=== PATIENT | female | born 1995 ===

== ENCOUNTER 2019-04-24 18:50 | Emergency (ER) | payer MEDICAID ==
[2019-04-24 19:16] VITALS: BP 146/86
--- NOTE | 2019-04-24 19:17 | Event Note ---
ED Screening Note Date of service: 04/24/19 Time: 19:14 ED Screening Note: 23 y/o female comes in for headache and vaginal bleeding times 2 weeks. No PMH. LMP 04/10/19. sexually active. This initial assessment/diagnostic orders/clinical plan/treatment(s) is/are subject to change based on patients health status, clinical progression and re- assessment by fellow clinical providers in the ED. Further treatment and workup at subsequent clinical providers discretion. Patient/guardian urged not to elope from the ED as their condition may be serious if not clinically assessed and managed. Initial orders include:
[2019-04-24 20:11] LABS: Basophils % (Auto) 0.3 % (0.0-1.8); Eosinophils % (Auto) 0.1 % (0.0-4.3); Hematocrit 36.3 % (30.3-42.9); Hemoglobin 11.8 gm/dl (10.1-14.3); Lymphocytes # (Auto) 1.2 K/mm3 (1.2-5.4); Lymphocytes % (Auto) 19.6 % (13.4-35.0); Mean Corpuscular HGB Conc 33 % (30-34); Mean Corpuscular Volume 76 fl (79-97); Monocytes # (Auto) 0.4 K/mm3 (0.0-0.8); Monocytes % (Auto) 6.8 % (0.0-7.3); Platelet Count 221 K/mm3 (140-440); Red Blood Count 4.75 M/mm3 (3.65-5.03); Red Cell Distribution Width 17.3 % (13.2-15.2)
[2019-04-24 20:31] LABS: Alanine Aminotransferase 16 units/L (7-56); Albumin 3.7 g/dL (3.9-5); BUN/Creatinine Ratio 12; Blood Urea Nitrogen 6 mg/dL (7-17); Hemolysis Index 10
[2019-04-24] MEDS ORDERED: BENADRYL IV ONE (20:48)
[2019-04-24] MEDS ORDERED: ZOFRAN IV ONE (20:48)
[2019-04-24] MEDS ORDERED: TORADOL IV ONE (20:48)
[2019-04-24] MEDS ORDERED: NACL 0.9% 1000 ML 1,000 ML IV ONE (20:49)
[2019-04-25 01:00] LABS: Color,Urine Yellow (Yellow)
[2019-04-25 01:01] LABS: Bilirubin,Urine Negative (Negative); Blood,Urine Moderate (Negative)
[2019-04-25 01:02] LABS: RBC,Urine > 182.0 /HPF (0.0-6.0)
[2019-04-25] MEDS ORDERED: TORADOL IV ONE (01:10)
[2019-04-25] MEDS ORDERED: ZOFRAN IV ONE (01:11)
[2019-04-25] MEDS ORDERED: FIORICET PO ONE (01:11)
--- NOTE | 2019-04-25 01:17 | Emergency Department Report ---
ED General Adult HPI - General Chief complaint: Vaginal Bleeding Stated complaint: HEADACHE Time Seen by Provider: 04/24/19 19:14 Source: patient Mode of arrival: Ambulatory Limitations: No Limitations - History of Present Illness Initial comments: Patient is a A0 23 yo AA female with a h/o chronic migraine headache who presents to the ED with c/o acute onset persistent frontal headache with nausea for the last 1 week. Patient also states that she has been having persistent heavy vaginal bleeding for the last 2 weeks after having her menstrual cycle. Patient states that she does not take any control tablets and not using any other contraceptives. Patient denies dizziness, chest pain, vision changes, abdominal pain, vomiting, syncope, fever and chills, dyspnea or cough and neck pain or palpitations, dysuria, urinary urgency and frequency or vaginal discharge. MD Complaint: headache, heavy vaginal bleeding -: Sudden, week(s) (2) Location: head, genitals Radiation: non-radiation Severity scale (0 -10): 7 Quality: aching, sharp, constant Consistency: intermittent Improves with: none Worsens with: none Associated Symptoms: denies other symptoms, headaches, other (vaginal bleeding). denies: confusion, chest pain, cough, diaphoresis, fever/chills, loss of appetite, malaise, nausea/vomiting, rash, seizure, shortness of breath, syncope, weakness Treatments Prior to Arrival: none - Related Data Previous Rx's Medication Instructions Recorded Last Taken Type Butalb/Acetamin/Caff 50-325-40 1 - 2 tab PO Q6HR PRN #15 tab 04/25/19 Unknown Rx [Fioricet 50-325-40] Ibuprofen [Motrin] 800 mg PO Q8HR PRN #24 tablet 04/25/19 Unknown Rx Promethazine [Phenergan] 25 mg PO Q6HR PRN #24 tab 04/25/19 Unknown Rx medroxyPROGESTERone ACETATE 10 mg PO QDAY #14 tablet 04/25/19 Unknown Rx [Provera] Allergies Allergy/AdvReac Type Severity Reaction Status Date / Time mushroom Allergy Headache Verified 04/24/19 19:10 ED Review of Systems ROS: Stated complaint: HEADACHE Other details as noted in HPI Comment: All other systems reviewed and negative Constitutional: denies: chills, fever Eyes: denies: eye pain, eye discharge, vision change ENT: denies: ear pain, throat pain, dental pain, hearing loss Respiratory: denies: cough, shortness of breath, SOB with exertion, SOB at rest, wheezing Cardiovascular: denies: chest pain, palpitations Endocrine: no symptoms reported. denies: excessive sweating, flushing, intolerance to cold, increased thirst, unexplained weight gain Gastrointestinal: denies: abdominal pain, nausea, vomiting, diarrhea, hematemesis, melena, hematochezia Genitourinary: abnormal menses (heavy vaginal bleeding). denies: urgency, dysuria, discharge Musculoskeletal: denies: back pain, joint swelling, arthralgia Skin: denies: rash, lesions Neurological: headache. denies: weakness, paresthesias Psychiatric: denies: anxiety, depression Hematological/Lymphatic: denies: easy bleeding, easy bruising ED Past Medical Hx - Past Medical History Previous Medical History?: No - Surgical History Past Surgical History?: Yes Additional Surgical History: ankle surgery after fracture - Social History Smoking Status: Never Smoker Substance Use Type: None - Medications Home Medications: Home Medications Medication Instructions Recorded Confirmed Last Taken Type Butalb/Acetamin/Caff 50-325-40 1 - 2 tab PO Q6HR PRN #15 tab 04/25/19 Unknown Rx [Fioricet 50-325-40] Ibuprofen [Motrin] 800 mg PO Q8HR PRN #24 tablet 04/25/19 Unknown Rx Promethazine [Phenergan] 25 mg PO Q6HR PRN #24 tab 04/25/19 Unknown Rx medroxyPROGESTERone ACETATE 10 mg PO QDAY #14 tablet 04/25/19 Unknown Rx [Provera] ED Physical Exam - General Limitations: No Limitations General appearance: alert, in no apparent distress - Head Head exam: Present: atraumatic, normocephalic, normal inspection - Eye Eye exam: Present: normal appearance, PERRL, EOMI. Absent: scleral icterus, conjunctival injection, nystagmus, periorbital swelling Pupils: Present: normal accommodation - ENT ENT exam: Present: normal exam, normal orophraynx, mucous membranes moist, TM's normal bilaterally, normal external ear exam - Neck Neck exam: Present: normal inspection, full ROM. Absent: tenderness, meningismus, lymphadenopathy, thyromegaly - Respiratory Respiratory exam: Present: normal lung sounds bilaterally. Absent: respiratory distress, wheezes, rales, rhonchi, stridor, chest wall tenderness, accessory muscle use, decreased breath sounds - Cardiovascular Cardiovascular Exam: Present: regular rate, normal rhythm. Absent: systolic murmur, diastolic murmur, rubs, gallop - GI/Abdominal GI/Abdominal exam: Present: soft, normal bowel sounds. Absent: tenderness, guarding, rebound, hyperactive bowel sounds, hypoactive bowel sounds, organom egaly, mass - Rectal Rectal exam: Present: deferred - Extremities Exam Extremities exam: Present: normal inspection, full ROM, normal capillary refill - Back Exam Back exam: Present: normal inspection - Neurological Exam Neurological exam: Present: alert, oriented X3, CN II-XII intact, normal gait, reflexes normal - Psychiatric Psychiatric exam: Present: normal affect, normal mood - Skin Skin exam: Present: warm, dry, intact, normal color. Absent: rash ED Course Vital Signs 04/24/19 19:14 Temperature 98.4 F Pulse Rate 84 Respiratory 18 Rate Blood Pressure 146/86 O2 Sat by Pulse 100 Oximetry - Reevaluation(s) Reevaluation #1: 04/25/19 01:59 Patient is alert and oriented x 3, and is in no acute distress with normal vital signs. Patient was treated for pain in the ED. Lab test results were reviewed and are all unremarkable including UA. On reevaluation, patient's pain is well controlled and resting comfortably. Patient was discharged home on medications and advised to follow up with her PCP or [facility] Physician in 5-7 days for reevaluation. Patient was advised to return to the ED immediately if symptoms get worse. ED Medical Decision Making - Lab Data Result diagrams: 04/24/19 19:52 04/24/19 19:52 - Medical Decision Making Patient is alert and oriented x 3, and is in no acute distress with normal vital signs. Patient was treated for pain in the ED. Lab test results were reviewed and are all unremarkable including UA. On reevaluation, patient's pain is well controlled and resting comfortably. Patient was discharged home on medications and advised to follow up with her PCP or [facility] Physician in 5-7 days for reevaluation. Patient was advised to return to the ED immediately if symptoms get worse. - Differential Diagnosis chronic migraine headache; Dysfunctional Uterine bleeding Critical care attestation.: If time is entered above; I have spent that time in minutes in the direct care of this critically ill patient, excluding procedure time. ED Disposition Clinical Impression: Dysfunctional uterine hemorrhage Migraine headache without aura Qualifiers: Status migrainosus presence: without status migrainosus Intractability: not intractable Qualified Code(s): G43.009 - Migraine without aura, not intractable, without status migrainosus Disposition: TO HOME OR SELFCARE Is pt being admited?: No Does the pt Need Aspirin: No Condition: Stable Instructions: Dysfunctional Uterine Bleeding (ED), Migraine Headache (ED), Menorrhagia (ED) Additional Instructions: Take medications with food, drink plenty of fluids and follow up with your [facility] physician in 5-7 days for reevaluation. Return to the ED immediately if symptoms get worse. Prescriptions: Butalb/Acetamin/Caff 50-325-40 [Fioricet 50-325-40] 1 - 2 tab PO Q6HR PRN #15 tab PRN Reason: Headache Ibuprofen [Motrin] 800 mg PO Q8HR PRN #24 tablet PRN Reason: Pain , Severe (7-10) Promethazine [Phenergan] 25 mg PO Q6HR PRN #24 tab PRN Reason: Nausea medroxyPROGESTERone ACETATE [Provera] 10 mg PO QDAY #14 tablet Referrals: LIGIA CARUSO MD [Primary Care Provider] - 3-5 Days HAKEEM VANN MD [Staff Physician] - 3-5 Days Time of Disposition: 01:16 Print Language: SYRIAC
[2019-04-25 01:44] LABS: Bacteria,Urine 1+ /HPF (Negative); Mucus,Urine FEW /HPF
== END 2019-04-25 01:30 | disposition home or self-care (01) ==
LOC: ED 18:50
DX: O20.8 Other hemorrhage in early pregnancy (principal); O99.351 Diseases of the nervous system complicating pregnancy, first trimester; G43.009 Migraine without aura, not intractable, without status migrainosus; Z98.890 Other specified postprocedural states; Z79.899 Other long term (current) drug therapy; Z91.018 Allergy to other foods; Z3A.01 Less than 8 weeks gestation of pregnancy
CPT/HCPCS: 36415; 80053; 81001; 84702; 85025; 96374; 96375; 96376; 99284; J1200; J1885; J2405; J7030